=== PATIENT | female | born 1940 | race Caucasian/White ===

== ENCOUNTER → 2016-10-21 | Outpatient (CLI) | payer OTHER, MEDICARE ==
[~2016-10-21] VITALS: Ht 170.2 cm; Wt 82.6 kg
[~2016-10-21] MED LIST: ASPIRIN81 M2 PO; CALCIUM 600 +1 EAC1 PO; CARDIZEM CD180 MG PO; DIPHEDRYL25 M2 PO; FISH OIL 1,001000 M2 PO; FLECAINIDE ACET50 M1 PO; FLONASE 0.05%50 MCG NASAL; GABAPENTIN 100100 MG PO; LIPITOR 20 MG T20 M1 PO; LISINOPRIL10 MG PO; METFORMIN HCL500 MG PO; MIRALAX17 GM PO; MOBIC15 MG PO; NEURONTIN100 MG PO; NEXIUM20 MG PO; NEXIUM40 MG PO; OXYCODONE HCL 55 MG PO; OXYCODONE-ACET1 EACH PO; UNICOMPLEX M TA1 TA1 PO; ZANAFLEX4 MG PO; ZANTAC 150MG T150 MG PO; ZOLOFT50 MG PO
--- NOTE | ~2016-10-21 | HPC ---
[facility] [address] [place] [address] PAIN MANAGEMENT CONSULTATION Name: ALEXANDER BETTENCOURT Room #: REG NISREENMikael Bruno.#: [id number] Admission: 10/21/16 Attend Phys: Richardson Zhu MD Discharge: Date of : 44 Report #: [id number] THIS REPORT FOR: //name// CC: SOCO Zhu DATE OF SERVICE: 10/21/2016 Followup visit for low back pain with radiculopathy. The patient returns to pain clinic for the first time in about a year. A [employer] spinal cord stimulator system was placed in October 2015. For 7 months, she did quite well. Over the course of the last 4 months, she has lost some coverage. Her pain has been worse, did term it as radiculopathy beginning in her back radiating into her right and left leg, right is worse. Intense at this time in pain is 10. She says that any time on her feet causes pain, the stimulator no longer providing relief. She has had one session over the phone with [employer] investment representative and they are here again today to see if they can help with different programming. We have also decided to further evaluate diagnostically. MEDICATIONS: Meloxicam, flecainide, metformin, diltiazem, atorvastatin, sertraline, ranitidine, multivitamins, calcium, aspirin, fish oil. ALLERGIES: None. PAST MEDICAL HISTORY: Positive for paroxysmal atrial fibrillation and hypertension. She has a history of depression and ebu-hcxlpua-lqnsqfxsa diabetes. PAST SURGICAL HISTORY: Surgeries have included laparoscopic cholecystectomy, hysterectomy, oophorectomy, pelvic wall repair, saphenous vein ligation, hammertoe, bunionectomy, rotator cuff, biceps tendon repair, cataract surgery. SOCIAL HISTORY: She is , denies use of tobacco or alcohol. Her activities have become much more limited. She has difficulty being on her feet doing any of the basic simple activities of daily living that her including standing, , doing kitchen work, cleaning, cooking, and vacuuming. PHYSICAL EXAMINATION: GENERAL: Her affect is depressed. VITAL SIGNS: Her blood pressure is 135/69, heart rate 70 with episodes of tachycardia above 100. She is 5 feet 7 inches, weight of 182 with a BMI of 28.5. She is able to move from a sitting to standing position independently. MUSCULOSKELETAL: Examination of the spine reveals the spinal cord stimulator to [facility] [address] [place] [address] PAIN MANAGEMENT CONSULTATION Name: ALEXANDER BETTENCOURT ROULA Room #: REG CLMikael Jaramillo#: [id number] Admission: 10/21/16 Attend Phys: Richardson Zhu MD Discharge: Date of : 44 Report #: [id number] be in the left subcostal region, nontender. She has some tenderness over the midline where the leads enter. She has positive straight leg raising bilaterally, worse on the right. IMPRESSION: 1. Chronic low back pain with radiculopathy. 2. [employer] high frequency spinal cord stimulation system. 3. History of depression. 4. Paroxysmal atrial fibrillation. 5. Hypertension. 6. Ujt-bjexgtm-bqveznukv diabetes. RECOMMENDATIONS: 1. X-ray was performed to confirm the position of the leads. They look perfect without movement. The tip of one lid is at T8, the second at T9. They have not changed since last year. 2. Medication for symptom management was discussed at length. I am placing her on oxycodone 5/325 one half to one tablet q. 6 hours with 60 tablets. 3. Return to pain clinic after adjustments made today by [employer] investment representative. We will see her in another 2-3 days. If she is not better, consider epidural steroid injection in lower lumbar region involving the distribution of pain at L4, L5, S1. 4. Continue with physical therapy and exercise. By: [id number] Richardson Zhu MD /nt
[2016-10-21 08:20] VITALS: BP 135/69
== END ==
LOC: PAIN 06:49
DX: M54.10 Radiculopathy, site unspecified (principal); G89.29 Other chronic pain; F32.9 Major depressive disorder, single episode, unspecified; I48.0 Paroxysmal atrial fibrillation; I10 Essential (primary) hypertension; E11.9 Type 2 diabetes mellitus without complications; Z90.710 Acquired absence of both cervix and uterus; Z90.49 Acquired absence of other specified parts of digestive tract

== ENCOUNTER → 2016-10-24 | Outpatient (CLI) | payer OTHER, MEDICARE ==
[~2016-10-24] VITALS: Ht 170.2 cm; Wt 82.0 kg
--- NOTE | ~2016-10-24 | HPC ---
[facility] [address] [address] PAIN MANAGEMENT CONSULTATION Name: ALEXANDER BETTENCOURT Room #: REG [facility] Ella#: [id number] Admission: 10/24/16 Attend Phys: Richardson Zhu MD Discharge: Date of : 44 Report #: [id number] THIS REPORT FOR: //name// CC: Bernadette Zhu DATE OF SERVICE: 10/24/2016 Followup visit for lumbar radiculopathy. The patient returns to pain clinic, but continues to have right-sided L3-L4 radicular pain. I have reviewed her x-rays from 2014, which showed anterolisthesis at L3-L4 and at L4-L5. There is neural foraminal narrowing and some curvature with levoscoliosis. We have decided given her limited improvement following the adjustment of her spinal cord stimulator to proceed today with an epidural injection. She is not on a blood thinner. Potential risks and benefits have been discussed. Please refer to evaluation from 10/21/2016 for further discussion. PHYSICAL EXAMINATION: Pain is noted in the right hip. Straight leg raising, she walks with antalgic features. Blood pressure 138/71, heart rate 70. IMPRESSION: 1. Lumbar radiculopathy. 2. Non-insulin diabetes. 3. Hypertension. 4. Paroxysmal atrial fibrillation. PROCEDURE: Right L4-L5 transforaminal epidural injection under fluoroscopic guidance. DESCRIPTION OF PROCEDURE: The patient was taken to fluoroscopic suite, placed prone, skin prepped with ChloraPrep. Skin anesthetized over the right L4-L5 neural foramen. Using triplanar fluoroscopic views, I advanced needle into the neural foramen. 1 mL of Omnipaque reproduces symptoms into the right hip and leg and was noted to cover nicely lateral recess along the right side extending cephalad. It was then followed by 3 mL of 0.5% lidocaine mixed with 80 mg triamcinolone. She tolerated the procedure well and was observed for 45 minutes and discharged. Follow up as needed in 1-2 weeks. By: [id number] Richardson Zhu MD /nt
[2016-10-24 09:47] VITALS: BP 138/71
== END | disposition home or self-care (01) ==
LOC: PAIN 07:11
DX: M54.16 Radiculopathy, lumbar region (principal); E11.9 Type 2 diabetes mellitus without complications; I10 Essential (primary) hypertension; I48.0 Paroxysmal atrial fibrillation

== ENCOUNTER → 2019-07-22 | Outpatient (CLI) | payer OTHER, MEDICARE | END | disposition home or self-care (01) | LOC: SJCVCIMAG 08:25 | DX: I10 Essential (primary) hypertension (principal); I48.0 Paroxysmal atrial fibrillation; E11.9 Type 2 diabetes mellitus without complications; E78.5 Hyperlipidemia, unspecified ==

== ENCOUNTER → 2019-11-12 | Outpatient (CLI) | payer OTHER, MEDICARE | LOC: SJCVC 10:46 | DX: I45.10 Unspecified right bundle-branch block (principal); R94.31 Abnormal electrocardiogram [ECG] [EKG]; I48.0 Paroxysmal atrial fibrillation; I10 Essential (primary) hypertension; E11.9 Type 2 diabetes mellitus without complications; E78.5 Hyperlipidemia, unspecified; M19.90 Unspecified osteoarthritis, unspecified site; Z79.82 Long term (current) use of aspirin; Z79.899 Other long term (current) drug therapy; Z82.49 Family history of ischemic heart disease and other diseases of the circulatory system ==

== ENCOUNTER → 2020-05-23 | Outpatient (CLI) | payer OTHER, MEDICARE | LOC: SJCVCIMAG 05-16 08:50 | PROVIDERS: ATTEND Internal Medicine | DX: I35.1 Nonrheumatic aortic (valve) insufficiency (principal); R94.31 Abnormal electrocardiogram [ECG] [EKG]; I45.10 Unspecified right bundle-branch block; I48.0 Paroxysmal atrial fibrillation; I10 Essential (primary) hypertension; E78.5 Hyperlipidemia, unspecified; E11.9 Type 2 diabetes mellitus without complications; I71.2 Thoracic aortic aneurysm, without rupture; Z79.82 Long term (current) use of aspirin; Z79.899 Other long term (current) drug therapy ==

== ENCOUNTER → 2020-11-21 | Outpatient (CLI) | payer OTHER, MEDICARE | LOC: SJCVC 10:31 | PROVIDERS: ATTEND Internal Medicine | DX: R94.31 Abnormal electrocardiogram [ECG] [EKG] (principal); I45.4 Nonspecific intraventricular block; I48.0 Paroxysmal atrial fibrillation; I10 Essential (primary) hypertension; E78.5 Hyperlipidemia, unspecified; E11.9 Type 2 diabetes mellitus without complications; I71.2 Thoracic aortic aneurysm, without rupture; M19.90 Unspecified osteoarthritis, unspecified site; Z90.710 Acquired absence of both cervix and uterus; Z90.49 Acquired absence of other specified parts of digestive tract; Z79.82 Long term (current) use of aspirin; Z79.84 Long term (current) use of oral hypoglycemic drugs; Z79.899 Other long term (current) drug therapy; Z86.16 Personal history of COVID-19; Z85.828 Personal history of other malignant neoplasm of skin; Z87.440 Personal history of urinary (tract) infections; Z82.49 Family history of ischemic heart disease and other diseases of the circulatory system ==